=== PATIENT | female | born 1985 | race African-American/Black ===

== ENCOUNTER 2019-07-11 00:58 | Inpatient (IN) ==
[2019-07-11] MEDS ORDERED: ONDANSETRON 4 MG/2 ML VIAL IV STA (01:38)
[2019-07-11] MEDS ORDERED: MORPHINE 4 MG/1 ML VIAL IV STA (01:38)
[2019-07-11 02:18] LABS: Basophils # 0.1 10*3/uL (0.0-0.2); Basophils % 0.6 % (0.0-0.8); Eosinophils # 0.1 10*3/uL (0.0-0.87); Eosinophils % 1.3 % (0.00-10.9); Hematocrit 39.7 VOL% (35.7-47.0); Hemoglobin 12.6 GM/DL (12.0-16.0); Immature Granulocytes % 0.3 %; Immature Granulocytes Absolute 0.03 #; Lymphocytes # 4.9 10*3/uL (1.4-4.0); Lymphocytes % 47.3 % (21.3-54.2); Mean Corpuscular HGB Conc 31.7 GM/DL (32-36); Mean Corpuscular Volume 81.9 FL (87-102); Mean Platelet Volume 11.9 FL (9.6-12.0); Monocytes % 7.8 % (1.7-12.7); Neutrophils % 42.7 % (38.7-73.9); Platelet Count 251 T/CUMM (130-400); Red Blood Count 4.85 MC/CUMM (3.8-5.5); Red Cell Distribution Width 13.8 % (9.3-17.3); White Blood Count 10.4 T/CUMM (4-12)
[2019-07-11 02:26] LABS: Apearance,Urine CLEAR (Clear); Bilirubin,Urine Negative (Negative); Blood, Urine Small mg/dL (Negative); Glucose,Urine (UA) Negative (Negative); Ketones,Urine Negative (Negative); Mucus,Urine Occasional /LPF (Occasional); Nitrite,Urine Negative (Negative); Protein,Urine Negative; RBC,Urine 1 /HPF (0-4); Squamous Epithelial Cell,Urine Occasional /HPF (0-10); Urine Color Yellow (Yellow); Urine Specific Gravity 1.017 (1.001-1.035); Urine Urobilinogen < 2.0 EU/DL (0.2-1.0); WBC,Urine 1 /HPF (0-6)
[2019-07-11 02:57] LABS: Albumin 3.7 G/DL (3.4-5.0); Bilirubin,Total 0.4 MG/DL (0.2-1.0); Osmolality,Calculated 278.4 MOS/KG (273-304); Total Protein 8.4 G/DL (6.4-8.3)
[2019-07-11] MEDS ORDERED: ONDANSETRON 4 MG/2 ML VIAL IV ONE (04:43)
[2019-07-11] MEDS ORDERED: HYDROmorphone 2 MG/1 ML VIAL IV STA (04:43)
[2019-07-11] MEDS ORDERED: ONDANSETRON 4 MG/2 ML VIAL IV PRN ×2 (05:20→16:27)
[2019-07-11] MEDS ORDERED: MORPHINE 4 MG/1 ML VIAL IV PRN (05:20)
[2019-07-11] MEDS: SODIUM CHLORIDE 0.9% 1,000 ML IV SCH ×2 (07:05→16:35)
[2019-07-11] MEDS: FAMOTIDINE 20 MG/2 ML VIAL IV SCH ×2 (08:12→21:06)
[2019-07-11] MEDS: hydrALAZINE 20 MG/1 ML VIAL IV PRN ×2 (08:12→16:45)
[2019-07-11 09:23] LABS: Barbiturates Screen,Urine Negative (Negative); Benzodiazepines Screen,Urine Negative (Negative); Cannabinoid Screen,Urine Positive (Negative); Opiate Screen,Urine Positive (Negative); Phencyclidine Screen,Urine Negative (Negative)
[2019-07-11] MEDS: POTASSIUM CHLORIDE RIDER 10 MEQ in PREMIX 1 EACH IV PRN ×2 (10:09→11:29)
[2019-07-11] MEDS ORDERED: BUPIVACAINE 0.25% /EPI 10 ML VIAL ONE (13:18)
[2019-07-11] MEDS ORDERED: LIDOCAINE 1% 20 ML VIAL ONE (13:19)
[2019-07-11] MEDS ORDERED: LIDOCAINE MPF 1% /EPI 30 ML VIAL ONE (13:19)
[2019-07-11] MEDS ORDERED: ceFAZolin 1,000 MG VIAL ONE (13:36)
[2019-07-11] MEDS ORDERED: TISSUE ADHESIVE 1 EACH APPLICATOR TOP ONE (15:56)
[2019-07-11] MEDS ORDERED: PROMETHAZINE INJ 25 MG in SODIUM CHLORIDE 0.9% 50 ML IV PRN (16:27)
[2019-07-11] MEDS ORDERED: PROMETHAZINE 25 MG/1 ML VIAL ONE (16:30)
[2019-07-11] MEDS ORDERED: hydrALAZINE 20 MG/1 ML VIAL ONE (16:30)
[2019-07-11] MEDS ORDERED: SEVOFLURANE 1 UNIT/15 MINUTE INH ONE (16:32)
[2019-07-11] MEDS ORDERED: PROPOFOL 200 MG/20 ML VIAL IV ONE (16:32)
[2019-07-11] MEDS ORDERED: MIDAZOLAM 2 MG/2 ML VIAL ONE (16:33)
[2019-07-11] MEDS ORDERED: ePHEDrine 50 MG/ML AMP ONE (16:33)
[2019-07-11] MEDS ORDERED: fentaNYL 100 MCG/2 ML VIAL ONE (16:33)
[2019-07-11] MEDS ORDERED: DEXAMETHASONE 4 MG/1 ML VIAL ONE (16:33)
[2019-07-11] MEDS ORDERED: NEOSTIGMINE 10 MG/10 ML VIAL ONE (16:34)
[2019-07-11] MEDS ORDERED: LACTATED RINGERS 2,000 ML IV ONE (16:34)
[2019-07-11] MEDS ORDERED: ROCURONIUM 100 MG/10 ML VIAL IV ONE (16:34)
[2019-07-11] MEDS ORDERED: ACETAMINOPHEN 1,000 MG/100 ML VIAL IV ONE (16:34)
[2019-07-11] MEDS ORDERED: PHENYLEPHRINE 1 MG/10 ML SYRINGE IV ONE (16:34)
[2019-07-11] MEDS ORDERED: SUCCINYLCHOLINE 200 MG/10 ML VIAL ONE (16:34)
[2019-07-11] MEDS: MEPERIDINE 25 MG/1 ML VIAL IV PRN ×2 (16:35→16:45)
[2019-07-11] MEDS: HYDROmorphone 2 MG/1 ML VIAL IV PRN ×2 (21:02→23:56)
[2019-07-12] MEDS: SODIUM CHLORIDE 0.9% 1,000 ML IV SCH ×2 (03:12→11:12)
[2019-07-12] MEDS: HYDROmorphone 2 MG/1 ML VIAL IV PRN ×4 (04:19→20:10)
[2019-07-12 05:30] LABS: Basophils % 0.1 % (0.0-0.8); Hematocrit 37.3 VOL% (35.7-47.0); Hemoglobin 11.7 GM/DL (12.0-16.0); Immature Granulocytes % 0.6 %; Immature Granulocytes Absolute 0.08 #; Lymphocytes # 1.8 10*3/uL (1.4-4.0); Lymphocytes % 12.4 % (21.3-54.2); Mean Corpuscular HGB Conc 31.4 GM/DL (32-36); Mean Corpuscular Volume 82.5 FL (87-102); Mean Platelet Volume 12.1 FL (9.6-12.0); Monocytes % 4.9 % (1.7-12.7); Platelet Count 259 T/CUMM (130-400); Red Blood Count 4.52 MC/CUMM (3.8-5.5); Red Cell Distribution Width 14.2 % (9.3-17.3); White Blood Count 14.4 T/CUMM (4-12)
[2019-07-12 05:57] LABS: Albumin 3.2 G/DL (3.4-5.0); Bilirubin,Total 0.8 MG/DL (0.2-1.0); Calcium 8.3 MG/DL (8.5-10.1); Osmolality,Calculated 272.7 MOS/KG (273-304); Total Protein 7.4 G/DL (6.4-8.3)
[2019-07-12] MEDS: FAMOTIDINE 20 MG/2 ML VIAL IV SCH ×2 (09:14→20:10)
[2019-07-12] MEDS ORDERED: ceFAZolin 2,000 MG in PREMIX 1 EACH IV ONE (14:00)
[2019-07-12 17:33] LABS: Basophils % 0.3 % (0.0-0.8); Eosinophils % 0.1 % (0.00-10.9); Hematocrit 36.7 VOL% (35.7-47.0); Hemoglobin 11.8 GM/DL (12.0-16.0); Immature Granulocytes % 0.4 %; Immature Granulocytes Absolute 0.06 #; Lymphocytes % 29.4 % (21.3-54.2); Mean Corpuscular HGB Conc 32.2 GM/DL (32-36); Mean Platelet Volume 11.7 FL (9.6-12.0); Monocytes % 7.7 % (1.7-12.7); Neutrophils % 62.1 % (38.7-73.9); Platelet Count 243 T/CUMM (130-400); Red Blood Count 4.42 MC/CUMM (3.8-5.5); Red Cell Distribution Width 14.2 % (9.3-17.3); White Blood Count 13.6 T/CUMM (4-12)
[2019-07-12 17:56] LABS: Albumin 3.3 G/DL (3.4-5.0); Bilirubin,Total 0.9 MG/DL (0.2-1.0); Calcium 8.4 MG/DL (8.5-10.1); Osmolality,Calculated 276.4 MOS/KG (273-304); Total Protein 7.3 G/DL (6.4-8.3)
[2019-07-12] MEDS: DEXT 5% LACT RING KCL 20 MEQ 20 MEQ/1,000 ML BAG IV SCH (20:10)
[2019-07-13] MEDS: HYDROmorphone 2 MG/1 ML VIAL IV PRN ×5 (00:04→17:28)
[2019-07-13 05:42] LABS: Basophils # 0.1 10*3/uL (0.0-0.2); Basophils % 0.5 % (0.0-0.8); Eosinophils # 0.1 10*3/uL (0.0-0.87); Eosinophils % 0.6 % (0.00-10.9); Hematocrit 36.7 VOL% (35.7-47.0); Hemoglobin 11.8 GM/DL (12.0-16.0); Immature Granulocytes % 0.3 %; Immature Granulocytes Absolute 0.03 #; Lymphocytes # 3.2 10*3/uL (1.4-4.0); Lymphocytes % 30.6 % (21.3-54.2); Mean Corpuscular HGB Conc 32.2 GM/DL (32-36); Mean Corpuscular Volume 82.3 FL (87-102); Monocytes % 8.7 % (1.7-12.7); Neutrophils % 59.3 % (38.7-73.9); Platelet Count 238 T/CUMM (130-400); Red Blood Count 4.46 MC/CUMM (3.8-5.5); Red Cell Distribution Width 14.1 % (9.3-17.3); White Blood Count 10.6 T/CUMM (4-12)
[2019-07-13 05:57] LABS: Albumin 3.2 G/DL (3.4-5.0); Calcium 8.6 MG/DL (8.5-10.1); Osmolality,Calculated 275.5 MOS/KG (273-304); Total Protein 7.6 G/DL (6.4-8.3)
[2019-07-13] MEDS: FAMOTIDINE 20 MG/2 ML VIAL IV SCH ×2 (08:45→20:59)
[2019-07-13] MEDS: DEXT 5% LACT RING KCL 20 MEQ 20 MEQ/1,000 ML BAG IV SCH ×2 (08:48→19:43)
[2019-07-13] MEDS: hydrALAZINE 20 MG/1 ML VIAL IV PRN ×2 (11:44→16:34)
[2019-07-13] MEDS: hydroCHLOROthiazide 12.5 MG CAPSULE PO SCH (15:15)
[2019-07-13] MEDS ORDERED: NITROGLYCERIN SL 0.4 MG TABLET SL PRN (17:35)
[2019-07-13] MEDS ORDERED: MORPHINE 4 MG/1 ML VIAL IV PRN (17:35)
[2019-07-13] MEDS ORDERED: ASPIRIN CHEW 81 MG TABLET PO ONE ×2 (17:35→17:36)
[2019-07-13] MEDS ORDERED: NITROGLYCERIN SL 0.4 MG TABLET SL ONE (17:36)
[2019-07-13] MEDS ORDERED: LABETALOL 20 MG/4 ML SYRINGE IV ONE (17:52)
[2019-07-13 17:53] LABS: Basophils # 0.1 10*3/uL (0.0-0.2); Basophils % 0.5 % (0.0-0.8); Eosinophils # 0.1 10*3/uL (0.0-0.87); Eosinophils % 0.8 % (0.00-10.9); Hematocrit 43.6 VOL% (35.7-47.0); Hemoglobin 14.1 GM/DL (12.0-16.0); Immature Granulocytes % 0.6 %; Immature Granulocytes Absolute 0.07 #; Lymphocytes # 4.8 10*3/uL (1.4-4.0); Lymphocytes % 41.4 % (21.3-54.2); Mean Corpuscular HGB Conc 32.3 GM/DL (32-36); Mean Corpuscular Volume 81.8 FL (87-102); Mean Platelet Volume 11.2 FL (9.6-12.0); Monocytes % 6.9 % (1.7-12.7); Neutrophils % 49.8 % (38.7-73.9); Platelet Count 278 T/CUMM (130-400); Red Blood Count 5.33 MC/CUMM (3.8-5.5); Red Cell Distribution Width 14.1 % (9.3-17.3); White Blood Count 11.6 T/CUMM (4-12)
[2019-07-13] MEDS ORDERED: CLORAZEPATE 3.75 MG TABLET PO ONE (17:53)
[2019-07-13 18:12] LABS: Calcium 9.8 MG/DL (8.5-10.1); Osmolality,Calculated 273.7 MOS/KG (273-304); Total Protein 9.3 G/DL (6.4-8.3)
[2019-07-13] MEDS ORDERED: LABETALOL 20 MG/4 ML SYRINGE IV PRN (18:41)
[2019-07-13] MEDS ORDERED: CLORAZEPATE 3.75 MG TABLET PO PRN (18:44)
[2019-07-13] MEDS: amLODIPine 2.5 MG TABLET PO SCH (19:45)
[2019-07-13] MEDS: ENOXAPARIN 40 MG/0.4 ML SYRINGE SUBCUT SCH (21:02)
[2019-07-13] MEDS: IBUPROFEN 400 MG TABLET PO PRN (21:06)
[2019-07-14] MEDS ORDERED: IBUPROFEN 800 MG TABLET PO ONE (01:36)
[2019-07-14] MEDS: DEXT 5% LACT RING KCL 20 MEQ 20 MEQ/1,000 ML BAG IV SCH (02:49)
[2019-07-14 05:26] LABS: Calcium 9.2 MG/DL (8.5-10.1); Osmolality,Calculated 271.7 MOS/KG (273-304)
[2019-07-14] MEDS: POTASSIUM CHLORIDE 20 MEQ TABLET PO PRN (07:15)
[2019-07-14] MEDS: amLODIPine 2.5 MG TABLET PO SCH (08:33)
[2019-07-14] MEDS: hydroCHLOROthiazide 12.5 MG CAPSULE PO SCH (08:33)
[2019-07-14] MEDS: IBUPROFEN 400 MG TABLET PO PRN ×2 (10:37→17:14)
[2019-07-14] MEDS: FAMOTIDINE 20 MG/2 ML VIAL IV SCH ×2 (13:20→23:05)
[2019-07-14] MEDS: ENOXAPARIN 40 MG/0.4 ML SYRINGE SUBCUT SCH (21:25)
[2019-07-15 06:03] LABS: Calcium 9.1 MG/DL (8.5-10.1)
[2019-07-15] MEDS: FAMOTIDINE 20 MG/2 ML VIAL IV SCH ×2 (09:00→20:52)
[2019-07-15] MEDS: hydroCHLOROthiazide 12.5 MG CAPSULE PO SCH (09:03)
[2019-07-15] MEDS: POTASSIUM CHLORIDE 20 MEQ TABLET PO PRN ×4 (09:04→19:09)
[2019-07-15] MEDS: IBUPROFEN 400 MG TABLET PO PRN (09:04)
[2019-07-15] MEDS: amLODIPine 5 MG TABLET PO SCH ×3 (09:04→09:19)
[2019-07-15] MEDS: ENOXAPARIN 40 MG/0.4 ML SYRINGE SUBCUT SCH (20:54)
[2019-07-16] MEDS: POTASSIUM CHLORIDE 20 MEQ TABLET PO PRN ×2 (01:32→03:46)
[2019-07-16 08:53] LABS: Basophils % 0.5 % (0.0-0.8); Eosinophils # 0.2 10*3/uL (0.0-0.87); Eosinophils % 1.8 % (0.00-10.9); Hemoglobin 12.9 GM/DL (12.0-16.0); Immature Granulocytes % 0.6 %; Immature Granulocytes Absolute 0.05 #; Lymphocytes % 46.4 % (21.3-54.2); Mean Corpuscular HGB Conc 32.3 GM/DL (32-36); Mean Platelet Volume 11.8 FL (9.6-12.0); Neutrophils % 39.7 % (38.7-73.9); Platelet Count 255 T/CUMM (130-400); Red Blood Count 4.88 MC/CUMM (3.8-5.5); Red Cell Distribution Width 13.6 % (9.3-17.3); White Blood Count 8.5 T/CUMM (4-12)
[2019-07-16] MEDS: FAMOTIDINE 20 MG/2 ML VIAL IV SCH (09:58)
[2019-07-16] MEDS: amLODIPine 5 MG TABLET PO SCH (10:18)
[2019-07-16] MEDS: hydroCHLOROthiazide 12.5 MG CAPSULE PO SCH (10:18)
[2019-07-16 11:28] VITALS: BP 145/76
== END 2019-07-16 14:34 | disposition home or self-care (01) | DRG 336 ==
LOC: N.EDINP 00:58 → N.ED 00:58 → N.EDINP 06:30 → N.2E 06:34 → SUATTDRO 07-12 08:07
PROVIDERS: ADMIT Internal Medicine; ATTEND Internal Medicine